=== PATIENT | female | born 1965 | race Caucasian/White ===

== ENCOUNTER 2020-08-10 10:11 | Emergency (ER) | payer BC ==
[2020-08-10] MEDS ORDERED: NORMAL SALINE 1000 ML 1,000 ML IV ONE (10:43)
[2020-08-10] MEDS ORDERED: KETOROLAC TROMETHAMINE INJ/PF 30 MG/1 ML SDV IV ONE (10:43)
--- NOTE | 2020-08-10 10:45 | ER Document Report ---
ED Medical Screen (RME) - General Chief Complaint: Headache Stated Complaint: HEADACHE,FEVER Time Seen by Provider: 08/10/20 10:36 Mode of Arrival: Ambulatory Information source: Patient Notes: Patient presents complaining of nausea and vomiting earlier in the week with headache. Patient reports fever of 1012. Patient planes of generalized body aches. Patient took Tylenol early this morning. 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 I have greeted and performed a rapid initial assessment of this patient. A comprehensive ED assessment and evaluation of the patient, analysis of test results and completion of the medical decision making process will be conducted by additional ED providers. Physical Exam - Vital signs Vitals: Temp Pulse Resp BP Pulse Ox 98.6 F 79 18 134/81 H 97 08/10/20 10:16 08/10/20 10:16 08/10/20 10:16 08/10/20 10:16 08/10/20 10:16 - Notes Notes: Full physical exam could not be performed due to covid 19 isolation protocols. Constitutional: Nontoxic appearance, no acute distress Eyes: Nonicteric, extraocular movements intact, sclera clear Neck: No meningismus Cardiovascular: No JVD Respiratory: Nonlabored breathing, no use of accessory muscles, no tachypnea Gastrointestinal: Abdomen not distended Muculoskeletal: Moves all extremities well Skin: Normal color Neuro: Awake alert oriented, normal speech Psych: Normal mood and affect Course - Vital Signs Vital signs: Temp Pulse Resp BP Pulse Ox 98.6 F 79 18 134/81 H 97 08/10/20 10:16 08/10/20 10:16 08/10/20 10:16 08/10/20 10:16 08/10/20 10:16
--- NOTE | 2020-08-10 11:21 | ER Document Report ---
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 No cough no shortness of breath. Has had a frontal headache over the last 2 to 3 days. Had a fever today trying to go to work so they sent her in for evaluation. Denies abdominal pain nausea vomiting. Denies dysuria. Denies posterior neck pain or stiffness. Patient states she feels dehydrated ROS: See HPI - all other systems were reviewed and are otherwise negative Constitutional: + fever, positive fatigue Eyes: no drainage, no blurred vision ENT: no runny nose, no sore throat Cardiovascular: no chest pain Resp: no SOB, no cough GI: no vomiting, no diarrhea, no abdominal pain : no dysuria Integumentary: no rash Allergy: no hives Musculoskeletal: no extremity pain or swelling Neurological: no numbness/tingling, no weakness, positive headache MEDICATIONS: I agree with the patient medications as charted by the RN. ALLERGIES: I agree with the allergies as charted by the RN. PAST MEDICAL HISTORY/PAST SURGICAL HISTORY: Reviewed and agree as charted by RN. SOCIAL HISTORY: Reviewed and agree as charted by RN. FAMILY HISTORY: No significant familial comorbid conditions directly related to patient complaint EXAM: Reviewed vital signs as charted by RN. CONSTITUTIONAL: Alert and oriented and responds appropriately to questions. Slightly ill-appearing; well-nourished HEAD: Normocephalic; atraumatic EYES: PERRL; Conjunctivae clear, sclerae non-icteric ENT: normal nose; no rhinorrhea; moist mucous membranes; pharynx without lesions noted, no uvula edema or deviation, no tonsillar hypertrophy, phonation normal NECK: Supple without meningismus; non-tender; no cervical lymphadenopathy, no masses CARD: RRR; no murmurs, no clicks, no rubs, no gallops; symmetric distal pulses RESP: Normal chest excursion without splinting or tachypnea; breath sounds clear and equal bilaterally; no wheezes, no rhonchi, no rales, pulse oximetry 97% on room air not hypoxic ABD/GI: Normal bowel sounds; non-distended; soft, non-tender, no rebound, no gu arding; no palpable organomegaly or masses. BACK: The back appears normal and is non-tender to palpation, there is no CVA tenderness EXT: Normal ROM in all joints; non-tender to palpation; no cyanosis, no effusions, no edema SKIN: Normal color for age and race; warm; dry; good turgor; no acute lesions noted NEURO: Moves all extremities equally; Motor and sensory function intact PSYCH: The patient's mood and manner are appropriate. Grooming and personal hygiene are appropriate. MDM: 54-year-old female presenting with flulike symptoms over the last 5 or 6 days. Has had fatigue, headache, no abdominal pain chest pain shortness of breath or cough. Has no posterior neck stiffness or nuchal rigidity suggesting meningitis at this time. Baseline screening labs and initial orders placed via triage process. Will add urinalysis. - Related Data Allergies/Adverse Reactions: No Known Allergies Allergy (Unverified 08/10/20 11:01) Home Medications: prilosec Past Medical History - General Information source: Patient - Social History Smoking Status: Never Smoker Family History: Reviewed & Not Pertinent Pulmonary Medical History: Reports: Hx Asthma Neurological Medical History: Reports: Hx Migraine GI Medical History: Reports: Hx Gastroesophageal Reflux Disease Past Surgical History: Reports: Hx Cholecystectomy, Hx Hysterectomy, Hx Orthopedic Surgery - shoulder, Hx Tonsillectomy Physical Exam - Vital signs Vitals: Temp Pulse Resp BP Pulse Ox 98.6 F 79 18 134/81 H 97 08/10/20 10:16 08/10/20 10:16 08/10/20 10:16 08/10/20 10:16 08/10/20 10:16 Course - Re-evaluation Re-evalutation: 08/10/20 14:14 Patient still complaining of mild frontal headache. Headache is somewhat improved. She has absolutely no restriction in her neck movement and no neck pain with movement of the head. Her lab work, urinalysis and influenza all negative. She is a person under investigation for COVID-19 at this time self quarantine at home pending results. I did speak with the patient about her results at length. I did offer further pain management here which she declines. I did offer lumbar puncture given her continuing headache which she declines at this time. Aware we cannot rule out meningitis without lumbar puncture but patient is adamant that she does not want this test done at this time. We did discuss return precautions at length. - Vital Signs Vital signs: Temp Pulse Resp BP Pulse Ox 98.6 F 79 18 134/81 H 97 08/10/20 10:16 08/10/20 10:16 08/10/20 10:16 08/10/20 10:16 08/10/20 10:16 - Laboratory Result Diagrams: 08/10/20 11:50 08/10/20 11:50 Discharge - Discharge Clinical Impression: Fever in adult, Person under investigation for COVID-19 Vomiting Qualifiers: Vomiting type: unspecified Vomiting Intractability: non-intractable Nausea presence: with nausea Qualified Code(s): R11.2 - Nausea with vomiting, unsp ecified Condition: Stable Disposition: HOME, SELF-CARE Instructions: COVID-19 Guidance for Persons Under Investigation Additional Instructions: You are considered a person under investigation for COVID-19 at this time self quarantine at home pending her test results which may take 2 to 5 days. You should receive notification from the hospital about your test results. Take Zofran for any nausea vomiting Voltaren for headache or body ache. Hydrate well at home. Your lab work including influenza testing did not show acute abnormalities. Return for worsening headache, neck pain or condition Prescriptions: Diclofenac Sodium [Voltaren 50 Mg Tablet.] 50 mg PO BID #20 tablet. Ondansetron [Zofran Odt 4 mg Tablet] 1 - 2 tab PO Q4H PRN #15 tab.rapdis PRN Reason: For Nausea/Vomiting Forms: Return to Work
[2020-08-10 12:27] LABS: ABSOLUTE EOSINOPHILS # (AUTO) 0.1 10^3/uL (0.0-0.6); ABSOLUTE LYMPHOCYTES (AUTO) 2.2 10^3/uL (0.5-4.7); ABSOLUTE MONOCYTES (AUTO) 0.6 10^3/uL (0.1-1.4); ABSOLUTE NEUT (AUTO) 2.7 10^3/uL (1.7-8.2); BASOPHILS % (AUTO) 0.4 % (0-2); HEMATOCRIT 39.6 % (36.0-47.0); HEMOGLOBIN 13.7 g/dL (12.0-15.5); LYMPHOCYTES % (AUTO) 39.1 % (13-45); MEAN CORPUSCULAR HEMOGLOBIN 30.5 pg (27.0-33.4); MEAN CORPUSCULAR HGB CONC 34.7 g/dL (32.0-36.0); MEAN CORPUSCULAR VOLUME 88 fl (80-97); MONOCYTES % (AUTO) 10.3 % (3-13); PLATELET COUNT 303 10^3/uL (150-450); RED CELL DISTRIBUTION WIDTH 13.2 % (11.5-14.0); SEGMENTED NEUTROPHILS % (AUTO) 48.2 % (42-78); TOTAL CELLS COUNTED % (AUTO) 100 %; WHITE BLOOD COUNT 5.5 10^3/uL (4.0-10.5)
[2020-08-10 12:49] LABS: ALBUMIN 4.5 g/dL (3.5-5.0); ALKALINE PHOSPHATASE 49 U/L (38-126); ANION GAP 7 (5-19); ASPARTATE AMINO TRANSFERASE 25 U/L (14-36); BILIRUBIN,DIRECT 0.1 mg/dL (0.0-0.4); BILIRUBIN,TOTAL 0.5 mg/dL (0.2-1.3); BLOOD UREA NITROGEN 14 mg/dL (7-20); CALCIUM 10.1 mg/dL (8.4-10.2); CARBON DIOXIDE 30 mmol/L (22-30); CHLORIDE 101 mmol/L (98-107); GLUCOSE 95 mg/dL (75-110); POTASSIUM 4.4 mmol/L (3.6-5.0); TOTAL PROTEIN 6.8 g/dL (6.3-8.2)
[2020-08-10 13:03] LABS: APPEARANCE,URINE CLEAR; BILIRUBIN,URINE NEGATIVE (NEGATIVE); COLOR,URINE STRAW; GLUCOSE, URINE NEGATIVE (NEGATIVE); KETONES,URINE NEGATIVE (NEGATIVE); LEUKOCYTE ESTERASE,URINE NEGATIVE (NEGATIVE); NITRITE,URINE NEGATIVE (NEGATIVE); PROTEIN,URINE NEGATIVE (NEGATIVE); URINE SPECIFIC GRAVITY 1.004; UROBILINOGEN,URINE NEGATIVE mg/dL (<2.0)
[2020-08-10 13:16] LABS: A TYPE INFLUENZA AG NEGATIVE (NEGATIVE); B INFLUENZA AG NEGATIVE (NEGATIVE)
[2020-08-10 14:40] VITALS: BP 129/67
== END 2020-08-10 14:40 | disposition home or self-care (01) ==
LOC: ER 10:11
DX: R50.9 Fever, unspecified (principal); R11.2 Nausea with vomiting, unspecified; R53.83 Other fatigue; R51.9 Headache, unspecified; J45.909 Unspecified asthma, uncomplicated; K21.9 Gastro-esophageal reflux disease without esophagitis; Z79.899 Other long term (current) drug therapy; Z20.828 Contact with and (suspected) exposure to other viral communicable diseases
CPT/HCPCS: 99284; 96361; 96374; 36415; 85025; 80053; 81001; 87804; U0003; J1885; J7030; C9803; 87635